=== PATIENT | female | born 1975 | race Two or more races ===

== ENCOUNTER 2018-01-31 08:54 | Emergency (ER) | payer OTHER ==
[~2018-01-31] VITALS: Ht 165.1 cm; Wt 81.6 kg
== END 2018-01-31 15:53 | disposition home or self-care (01) ==
LOC: ER 08:54
DX: R10.2 Pelvic and perineal pain (principal)

== ENCOUNTER 2020-02-22 10:56 | Emergency (ER) | payer OTHER ==
[~2020-02-22] VITALS: Ht 165.1 cm; Wt 72.6 kg
[2020-02-22] MEDS ORDERED: PEPCID AC20 MG PO (16:52)
[2020-02-22] MEDS ORDERED: LEVSIN0.125 MG PO (16:52)
== END 2020-02-22 17:04 | disposition home or self-care (01) ==
LOC: ER 10:56
DX: K29.60 Other gastritis without bleeding (principal); Z20.828 Contact with and (suspected) exposure to other viral communicable diseases